=== PATIENT | male | born 1995 | race Caucasian/White ===

== ENCOUNTER 2019-05-21 15:07 | Inpatient (IN) | payer OTHER ==
[~2019-05-21] VITALS: Ht 182.9 cm; Wt 77.2 kg
[2019-05-21] MEDS ORDERED: DERMABOND TOPICAL SKIN ADHESIVE TOP ONE (15:45)
[2019-05-21 15:55] LABS: HEMATOCRIT 51.2 % (42.0-52.0); HEMOGLOBIN 17.3 g/dl (13.5-17.5); MEAN CORPUSCULAR HEMOGLOBIN 30.6 pg (27.0-33.0); MEAN CORPUSCULAR HGB CONC 33.8 g/dl (32.0-36.5); MEAN CORPUSCULAR VOLUME 90.6 fl (80.0-96.0); PLATELET COUNT, AUTOMATED 281 10^3/uL (150-450); RED BLOOD COUNT 5.65 10^6/uL (4.30-6.10); WHITE BLOOD COUNT 9.5 10^3/uL (4.0-10.0)
[2019-05-21 16:24] LABS: AMPHETAMINES LEVEL URINE NEGATIVE (NEGATIVE); BARBITURATES URINE NEGATIVE (NEGATIVE); BENZODIAZEPINES URINE NEGATIVE (NEGATIVE); CANNABINOIDS URINE NEGATIVE (NEGATIVE); COCAINE METABOLITE URINE NEGATIVE (NEGATIVE); METHADONE URINE NEGATIVE (NEGATIVE); OPIATES URINE NEGATIVE (NEGATIVE); PHENCYCLIDINE URINE NEGATIVE (NEGATIVE)
[2019-05-21 16:31] LABS: ACETAMINOPHEN LEVEL < 2.0 UG/ML (10.0-30.0); ALBUMIN 4.6 GM/DL (3.2-5.2); ALT/SGPT 27 U/L (12-78); BILIRUBIN,DIRECT 0.2 MG/DL (0.0-0.2); BILIRUBIN,TOTAL 0.6 MG/DL (0.2-1.0); BLOOD UREA NITROGEN 9 MG/DL (7-18); CALCIUM LEVEL 9.2 MG/DL (8.5-10.1); CARBON DIOXIDE LEVEL 25 MEQ/L (21-32); CHLORIDE LEVEL 105 MEQ/L (98-107); ETHYL ALCOHOL (ETHANOL) 0.143 % (0.000-0.010); GLOMERULAR FILTRATION RATE > 60.0 (>60); GLUCOSE, FASTING 93 MG/DL (70-100); POTASSIUM SERUM 3.7 MEQ/L (3.5-5.1); SALICYLATE LEVEL 1.8 MG/DL (5.0-30.0); SODIUM LEVEL 137 MEQ/L (136-145); THYROID STIMULATING HORMONE 0.589 uIU/ML (0.358-3.740); TOTAL PROTEIN 7.7 GM/DL (6.4-8.2)
[2019-05-21] MEDS ORDERED: IBUPROFEN 600 MG TAB PO ONE (22:30)
[2019-05-22] MEDS ORDERED: MOM 30ML SUSPENSION UDC PO PRN (00:30)
[2019-05-22] MEDS ORDERED: ACETAMINOPHEN TAB 650MG DOSE (2X325MG) PO PRN (00:30)
[2019-05-22] MEDS ORDERED: MAALOX 30 ML SUSP *UDC PO PRN (00:30)
[2019-05-22] MEDS ORDERED: traZODone 50 MG TAB PO PRN (00:30)
[2019-05-22] MEDS ORDERED: LORazepam 2 MG TAB PO PRN (06:15)
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
[2019-05-22] MEDS: FOLIC ACID 1 MG TAB PO SCH (10:01)
[2019-05-22] MEDS: MULTIVITAMINS/MINERALS THERAP 1 TAB PO SCH (10:01)
[2019-05-22] MEDS: THIAMINE 100 MG TAB PO SCH ×2 (10:01→20:17)
[2019-05-22 10:21] VITALS: BP 123/78
[2019-05-22] MEDS ORDERED: PILL CUTTER 1 EACH XX PRN (11:00)
[2019-05-22 16:00] VITALS: BP 135/60
--- NOTE | 2019-05-22 16:00 | HPEPDOC ---
General Date of Admission May 22, 2019 at 00:23 Date of Service: May 22, 2019 Chief Complaint The patient is a 23-year-old male admitted with a reason for visit of Unspecified Depression. Source: Patient Exam Limitations: No limitations Associated Symptoms: Denies Symptoms History of Present Illness Pt is a 23 year old male who was admitted to [facility] after an apparent suicide attempt. Pt reported that he cut his wrists 'just to feel something.' He stated he has been suicidal form the age of 6 or 7. He has attempted to commit suicide by hanging 'somewhere between the age of [age].' Pt stated he hasn't taken anti-depressants in some time now. He reported he was taking Elavil for sleep, not for depression. Home Medications No Active Prescriptions or Reported Meds Allergies Coded Allergies: No Known Allergies (Verified Allergy, Unknown, 05/21/19) Past Medical History Medical History Depression Suicide attempt by hanging Surgical History Rhinoplasty Family History Significant Family History: Cancer (Mother - colon cancer ) Social History * Smoker: current smoker (5 cigarettes per day ) Alcohol: occationally (weekends ) Drugs: denies A-FIB/CHADSVASC A-FIB History Current/History of A-Fib/PAF?: No Current PO Anticoag Therapy: No Review of Systems Constitutional: Denies: Chills, Fever, Night Sweats Eyes: Denies: Pain ENT: Denies: Head Aches Skin: Denies: Rash, Breakdown Pulmonary: Reports: Cough (dry intermittent cough, 2/2 post-nasal drip ); Denies: Dyspnea Cardiovascular: Denies: Chest Pain, Palpitations Gastrointestinal: Denies: Nausea, Vomiting, Abdominal Pain, Diarrhea Genitourinary: Denies: Dysuria, Retention Hematologic: Denies: Bruising, Bleeding Excessively Musculoskeletal: Denies: Neck Pain, Back Pain, Joint Pain, Muscle Pain, Spasms Neurological: Denies: Weakness, Numbness, Change in speech, Confusion Psych: Reports: Depression, Thoughts of Self Harm; Denies: Memory Issues, Thoughts of Harming Other Physical Examination General Exam: Positive: Alert, Cooperative, No Acute Distress Eye Exam: Positive: PERRLA, Conjunctiva & lids normal, EOMI; Negative: Sclera icteric ENT Exam: Positive: Atraumatic, Mucous membr. moist/pink, Pharynx Normal Neck Exam: Positive: Supple; Negative: thyromegaly Chest Exam: Positive: Clear to auscultation, Normal air movement Heart Exam: Positive: Rate Normal, Regular Rhythm, Normal S1, Normal S2; Negative: Murmurs, Rubs Telemetry: Positive: No significant arrhythmia Abdomen Exam: Positive: Normal bowel sounds, Soft; Negative: Tenderness, Hepatospenomegaly Extremity Exam: Positive: Normal pulses; Negative: Clubbing, Cyanosis, Edema Skin Exam: Positive: Nl turgor and temperature, Other skin issue (superficial scar b/l wrists from self-harm ); Negative: Breakdown, Lesion Neuro Exam: Positive: Normal Gait, Normal Speech, Strength at 5/5 X4 ext, C ranial Nerves 3-12 NL Psych Exam: Positive: Mood NL Vital Signs Vital Signs Date Time Temp Pulse Resp B/P (MAP) Pulse Ox O2 Delivery O2 Flow Rate FiO2 05/22/19 10:21 98.5 76 16 123/78 (93) 98 Room Air Assessment/Plan Pt is a 23 year old male who was admitted to [facility] after an apparent suicide attempt. Pt reported that he cut his wrists 'just to feel something.' He stated he has been suicidal form the age of 6 or 7. He has attempted to commit suicide by hanging 'somewhere between the age of [age].' Pt stated he hasn't taken anti-depressants in some time now. He reported he was taking Elavil for sleep, not for depression. Depression, with suicide attempt - management per psychiatry Medicine will sign off at this time. Please re-consult as needed. I, Xavier Frye, have independently examined this patient and performed my own physical exam, as well as reviewed the documentation and edited where necessary. I have discussed in detail with the nurse practitioner the findings and plan of treatment as documented by the nurse practitioner . I will continue to follow the patient during this hospital stay. Plan / VTE VTE Prophylaxis Ordered?: No JUNE RAMIRES PA-C May 22, 2019 16:00 XAVIER FRYE DO May 22, 2019 20:14
[2019-05-22 20:30] VITALS: BP 136/77
[2019-05-22] MEDS ORDERED: AMITRIPTYLINE 10 MG TAB PO SCH (21:00)
[2019-05-22] MEDS ORDERED: AMITRIPTYLINE 25 MG TAB PO SCH (21:00)
[2019-05-23 06:31] VITALS: BP 133/68
[2019-05-23 06:32] VITALS: BP 133/68
[2019-05-23] MEDS: THIAMINE 100 MG TAB PO SCH ×2 (09:11→20:29)
[2019-05-23] MEDS: FOLIC ACID 1 MG TAB PO SCH (09:11)
[2019-05-23] MEDS: MULTIVITAMINS/MINERALS THERAP 1 TAB PO SCH (09:11)
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
[2019-05-23] MEDS: NICOTINE 21MG/24HR 1 EA TRANSDERMAL TD SCH (12:43)
[2019-05-23 16:47] VITALS: BP 128/70
[2019-05-23] MEDS: AMITRIPTYLINE 10 MG TAB PO SCH ×2 (21:00→22:35)
[2019-05-23] MEDS ORDERED: hydrOXYzine 50 MG TAB PO PRN (21:00)
[2019-05-23] MEDS: QUEtiapine FUMARATE 50 MG TAB PO PRN (22:35)
[2019-05-24 06:15] VITALS: BP 131/83
[2019-05-24 08:11] VITALS: BP 131/83
[2019-05-24] MEDS: FOLIC ACID 1 MG TAB PO SCH (09:23)
[2019-05-24] MEDS: MULTIVITAMINS/MINERALS THERAP 1 TAB PO SCH (09:24)
[2019-05-24] MEDS: NICOTINE 21MG/24HR 1 EA TRANSDERMAL TD SCH (09:24)
[2019-05-24] MEDS: THIAMINE 100 MG TAB PO SCH ×2 (09:24→21:25)
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
[2019-05-24] MEDS: hydrOXYzine 25 MG TAB PO PRN (13:34)
[2019-05-24] MEDS: POLYSPORIN TOPICAL OINTMENT 15GM TOP SCH ×2 (15:09→21:25)
[2019-05-24 16:10] VITALS: BP 132/82
[2019-05-24] MEDS: QUEtiapine FUMARATE 50 MG TAB PO PRN (21:25)
[2019-05-24] MEDS: AMITRIPTYLINE 10 MG TAB PO SCH (21:25)
[2019-05-25 06:32] VITALS: BP 143/68
[2019-05-25] MEDS: MULTIVITAMINS/MINERALS THERAP 1 TAB PO SCH (08:43)
[2019-05-25] MEDS: FOLIC ACID 1 MG TAB PO SCH (08:43)
[2019-05-25] MEDS: NICOTINE 21MG/24HR 1 EA TRANSDERMAL TD SCH (08:44)
[2019-05-25] MEDS: POLYSPORIN TOPICAL OINTMENT 15GM TOP SCH ×3 (08:45→20:27)
[2019-05-25 09:42] VITALS: BP 143/68
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
[2019-05-25] MEDS ORDERED: LORazepam 1 MG TAB PO ONE (14:00)
[2019-05-25 16:00] VITALS: BP 134/81
[2019-05-25] MEDS ORDERED: AMITRIPTYLINE 10 MG TAB PO SCH (21:00)
[2019-05-26 06:45] VITALS: BP 140/70
[2019-05-26] MEDS: FOLIC ACID 1 MG TAB PO SCH (08:14)
[2019-05-26] MEDS: MULTIVITAMINS/MINERALS THERAP 1 TAB PO SCH (08:14)
[2019-05-26] MEDS: POLYSPORIN TOPICAL OINTMENT 15GM TOP SCH (08:15)
[2019-05-26] MEDS: NICOTINE 21MG/24HR 1 EA TRANSDERMAL TD SCH (08:15)
[2019-05-26] MEDS ORDERED: QUET5TAB PO (08:31)
[2019-05-26] MEDS ORDERED: NICO21PAT TD (08:31)
[2019-05-26] MEDS ORDERED: AMIT10TA PO (08:31)
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
[2019-05-26] MEDS: hydrOXYzine 25 MG TAB PO PRN (09:52)
== END 2019-05-26 11:20 | disposition home or self-care (01) | DRG 885 ==
LOC: M ED 15:07 → M ED INP 05-22 00:23 → M PSY 05-22 09:09
PROVIDERS: ADMIT Psychiatry & Neurology Addiction Medicine; ATTEND Psychiatry & Neurology Addiction Medicine
DX: F32.2 Major depressive disorder, single episode, severe without psychotic features (principal); F10.129 Alcohol abuse with intoxication, unspecified; Z87.820 Personal history of traumatic brain injury; S61.511A Laceration without foreign body of right wrist, initial encounter; S61.512A Laceration without foreign body of left wrist, initial encounter; X78.9XXA Intentional self-harm by unspecified sharp object, initial encounter; Y92.009 Unspecified place in unspecified non-institutional (private) residence as the place of occurrence of the external cause; F43.10 Post-traumatic stress disorder, unspecified; Z62.811 Personal history of psychological abuse in childhood; Z62.810 Personal history of physical and sexual abuse in childhood; Z63.5 Disruption of family by separation and divorce

== ENCOUNTER 2019-06-28 01:17 | Inpatient (IN) | payer OTHER ==
[~2019-06-28] VITALS: Ht 182.9 cm; Wt 75.3 kg
[~2019-06-28 01:17] MED LIST: AMIT10TA PO; NICO21PAT TD; QUET5TAB PO
[2019-06-28] MEDS ORDERED: CITA20TA6 PO (01:40)
[2019-06-28 01:56] LABS: HEMATOCRIT 47.9 % (42.0-52.0); HEMOGLOBIN 16.1 g/dl (13.5-17.5); MEAN CORPUSCULAR HEMOGLOBIN 30.6 pg (27.0-33.0); MEAN CORPUSCULAR HGB CONC 33.6 g/dl (32.0-36.5); MEAN CORPUSCULAR VOLUME 90.9 fl (80.0-96.0); PLATELET COUNT, AUTOMATED 264 10^3/uL (150-450); RED BLOOD COUNT 5.27 10^6/uL (4.30-6.10); WHITE BLOOD COUNT 11.5 10^3/uL (4.0-10.0)
[2019-06-28 02:20] LABS: AMPHETAMINES LEVEL URINE NEGATIVE (NEGATIVE); BARBITURATES URINE NEGATIVE (NEGATIVE); BENZODIAZEPINES URINE NEGATIVE (NEGATIVE); CANNABINOIDS URINE NEGATIVE (NEGATIVE); COCAINE METABOLITE URINE NEGATIVE (NEGATIVE); METHADONE URINE NEGATIVE (NEGATIVE); OPIATES URINE NEGATIVE (NEGATIVE); PHENCYCLIDINE URINE NEGATIVE (NEGATIVE)
[2019-06-28 02:28] LABS: ACETAMINOPHEN LEVEL < 2.0 UG/ML (10.0-30.0); ALBUMIN 4.2 GM/DL (3.2-5.2); ALT/SGPT 21 U/L (12-78); BILIRUBIN,DIRECT < 0.1 MG/DL (0.0-0.2); BILIRUBIN,TOTAL 0.2 MG/DL (0.2-1.0); BLOOD UREA NITROGEN 5 MG/DL (7-18); CALCIUM LEVEL 8.6 MG/DL (8.5-10.1); CARBON DIOXIDE LEVEL 26 MEQ/L (21-32); CHLORIDE LEVEL 110 MEQ/L (98-107); CREATININE FOR GFR 0.78 MG/DL (0.70-1.30); ETHYL ALCOHOL (ETHANOL) 0.292 % (0.000-0.010); GLOMERULAR FILTRATION RATE > 60.0 (>60); GLUCOSE, FASTING 97 MG/DL (70-100); POTASSIUM SERUM 3.7 MEQ/L (3.5-5.1); SODIUM LEVEL 144 MEQ/L (136-145); TOTAL PROTEIN 7.3 GM/DL (6.4-8.2)
[2019-06-28] MEDS ORDERED: QUET5TAB PO (10:47)
[2019-06-28] MEDS ORDERED: ACETAMINOPHEN TAB 650MG DOSE (2X325MG) PO PRN (11:30)
[2019-06-28] MEDS ORDERED: MOM 30ML SUSPENSION UDC PO PRN (11:30)
[2019-06-28] MEDS ORDERED: MAALOX 30 ML SUSP *UDC PO PRN (11:30)
[2019-06-28] MEDS: CitaloPRAM (CeleXA) 20 MG TAB PO SCH (11:48)
[2019-06-28 11:57] VITALS: BP 143/82
[2019-06-28] MEDS: NICOTINE 21MG/24HR 1 EA TRANSDERMAL TD SCH (16:05)
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
[2019-06-28] MEDS: QUEtiapine FUMARATE 50 MG TAB PO PRN (20:20)
[2019-06-29] MEDS ORDERED: UNRESOLVED CLARIFICATION ENTRY XX SCH (00:01)
[2019-06-29 06:31] VITALS: BP 130/78
[2019-06-29] MEDS: CitaloPRAM (CeleXA) 20 MG TAB PO SCH (08:24)
[2019-06-29] MEDS: NICOTINE 21MG/24HR 1 EA TRANSDERMAL TD SCH (08:24)
[2019-06-29 11:15] VITALS: BP 130/78
[2019-06-29] MEDS ORDERED: LORazepam 2 MG TAB PO PRN (11:15)
[2019-06-29] MEDS: FOLIC ACID 1 MG TAB PO SCH (11:26)
[2019-06-29] MEDS: MULTIVITAMINS/MINERALS THERAP 1 TAB PO SCH (11:27)
[2019-06-29] MEDS: THIAMINE 100 MG TAB PO SCH ×2 (11:27→20:00)
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
[2019-06-29 18:12] VITALS: BP 143/86
[2019-06-29] MEDS: QUEtiapine FUMARATE 50 MG TAB PO PRN (20:00)
[2019-06-30 06:21] VITALS: BP 135/77
[2019-06-30] MEDS: MULTIVITAMINS/MINERALS THERAP 1 TAB PO SCH (08:06)
[2019-06-30] MEDS: FOLIC ACID 1 MG TAB PO SCH (08:06)
[2019-06-30] MEDS: CitaloPRAM (CeleXA) 20 MG TAB PO SCH (08:06)
[2019-06-30] MEDS: THIAMINE 100 MG TAB PO SCH (08:06)
[2019-06-30] MEDS: NICOTINE 21MG/24HR 1 EA TRANSDERMAL TD SCH (08:07)
[2019-06-30] MEDS ORDERED: CITA20TA6 PO (09:03)
[2019-06-30] MEDS ORDERED: QUET5TAB PO (09:03)
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
[2019-06-30 09:35] VITALS: BP 135/77
== END 2019-06-30 13:08 | disposition home or self-care (01) | DRG 885 ==
LOC: M ED 01:17 → M ED INP 11:21 → M PSY 12:10
PROVIDERS: ADMIT Psychiatry & Neurology Psychiatry; ATTEND Psychiatry & Neurology Psychiatry
DX: F32.2 Major depressive disorder, single episode, severe without psychotic features (principal); F10.129 Alcohol abuse with intoxication, unspecified; F17.210 Nicotine dependence, cigarettes, uncomplicated; F43.10 Post-traumatic stress disorder, unspecified; Z62.810 Personal history of physical and sexual abuse in childhood; Z62.811 Personal history of psychological abuse in childhood; Z81.1 Family history of alcohol abuse and dependence; Z81.8 Family history of other mental and behavioral disorders; Z79.899 Other long term (current) drug therapy; Z63.5 Disruption of family by separation and divorce

== ENCOUNTER 2019-07-22 01:48 | Observation (INO) | payer OTHER ==
[~2019-07-22] VITALS: Ht 182.9 cm; Wt 85.0 kg
[~2019-07-22 01:48] MED LIST changes: +CITA20TA6 PO
[2019-07-22] MEDS ORDERED: ESCI10TA2 PO (02:00)
[2019-07-22] MEDS ORDERED: TRAZ-252 PO (02:00)
[2019-07-22 02:14] LABS: HEMATOCRIT 46.9 % (42.0-52.0); HEMOGLOBIN 15.9 g/dl (13.5-17.5); MEAN CORPUSCULAR HEMOGLOBIN 31.2 pg (27.0-33.0); MEAN CORPUSCULAR HGB CONC 33.9 g/dl (32.0-36.5); MEAN CORPUSCULAR VOLUME 92.1 fl (80.0-96.0); PLATELET COUNT, AUTOMATED 249 10^3/uL (150-450); RED BLOOD COUNT 5.09 10^6/uL (4.30-6.10); WHITE BLOOD COUNT 9.8 10^3/uL (4.0-10.0)
[2019-07-22 02:47] LABS: ACETAMINOPHEN LEVEL < 2.0 UG/ML (10.0-30.0); ALBUMIN 4.3 GM/DL (3.2-5.2); ALT/SGPT 20 U/L (12-78); BILIRUBIN,DIRECT < 0.1 MG/DL (0.0-0.2); BILIRUBIN,TOTAL 0.3 MG/DL (0.2-1.0); BLOOD UREA NITROGEN 11 MG/DL (7-18); CALCIUM LEVEL 8.3 MG/DL (8.5-10.1); CARBON DIOXIDE LEVEL 24 MEQ/L (21-32); CHLORIDE LEVEL 109 MEQ/L (98-107); CREATININE FOR GFR 0.71 MG/DL (0.70-1.30); ETHYL ALCOHOL (ETHANOL) 0.264 % (0.000-0.010); GLOMERULAR FILTRATION RATE > 60.0 (>60); GLUCOSE, FASTING 107 MG/DL (70-100); POTASSIUM SERUM 3.9 MEQ/L (3.5-5.1); SALICYLATE LEVEL 2.9 MG/DL (5.0-30.0); SODIUM LEVEL 142 MEQ/L (136-145); THYROID STIMULATING HORMONE 0.896 uIU/ML (0.358-3.740); TOTAL PROTEIN 7.3 GM/DL (6.4-8.2)
[2019-07-22 04:13] LABS: AMPHETAMINES LEVEL URINE NEGATIVE (NEGATIVE); BARBITURATES URINE NEGATIVE (NEGATIVE); BENZODIAZEPINES URINE NEGATIVE (NEGATIVE); CANNABINOIDS URINE NEGATIVE (NEGATIVE); COCAINE METABOLITE URINE NEGATIVE (NEGATIVE); METHADONE URINE NEGATIVE (NEGATIVE); OPIATES URINE NEGATIVE (NEGATIVE); PHENCYCLIDINE URINE NEGATIVE (NEGATIVE)
[2019-07-22] MEDS ORDERED: SERO50TA PO (07:52)
[2019-07-22] MEDS ORDERED: ACETAMINOPHEN TAB 650MG DOSE (2X325MG) PO PRN (08:30)
--- NOTE | 2019-07-22 08:48 | HPEPDOC ---
General Date of Admission 07/22/19 Date of Service: Jul 22, 2019 Chief Complaint The patient is a 23-year-old male admitted with a reason for visit of Overdose. Source: Old records Exam Limitations: Intoxication Timing/Duration: 24 hours Severity: Moderate Associated Symptoms: Unobtainable History of Present Illness Patient is 23 years old male with past medical history of suicidal ideation, alcohol abuse, tobacco abuse presented to [facility] emergency room on 07/22/19 after heavy drinking and overdose with Lexapro, Seroquel and trazodone. Of note patient had a few suicidal attempts in the past most recent was on on 06/28/2019 and in May 2019. In emergency room patient was somnolent, did not follow commands, but responsive on sternal rub. EKG showed sinus rhythm with QTC 432 ms, U tox showed alcohol level 0.2. When I saw the patient he was somnolent, did not answer my questions. Home Medications Scheduled Escitalopram Oxalate (Escitalopram Oxalate) 10 Mg Tablet, 5 MG PO DAILY, (Reported) Quetiapine Fumarate (Seroquel) 50 Mg Tablet, 50 MG PO QHS, (Reported) Trazodone HCl (Trazodone HCl) 50 Mg Tablet, 100 MG PO QHS, (Reported) Allergies Coded Allergies: No Known Allergies (Verified Allergy, Unknown, 07/22/19) Past Medical History Medical History 1. Depression 2. History of suicidal ideation 3. Tobacco abuse 4. Alcohol abuse Surgical History 1. Nasal surgery 3 Family History Father: Unknown history, alive Mother: Colon cancer, alive Maternal uncle: Testicular cancer Social History * Smoker: current smoker Alcohol: occationally Drugs: denies A-FIB/CHADSVASC A-FIB History Current/History of A-Fib/PAF?: No Current PO Anticoag Therapy: No Review of Systems Constitutional: Reports: Other (unobtainable due to somnolence) Physical Examination General Exam: Positive: Other (somnolent) Eye Exam: Positive: Other Eye Symptoms (bilateral mydriasis); Negative: PERRLA ENT Exam: Positive: Atraumatic Neck Exam: Positive: Supple; Negative: JVD Chest Exam: Positive: Clear to auscultation Heart Exam: Positive: Rate Normal Telemetry: Positive: No significant arrhythmia Abdomen Exam: Positive: Normal bowel sounds Extremity Exam: Negative: Clubbing, Cyanosis Skin Exam: Positive: Nl turgor and temperature Neuro Exam: Positive: Normal Tone, Reflexes 2+, Other (unable to complete neurological exam due to somnolence) Psych Exam: Positive: Other (somnolent) Vital Signs Vital Signs Date Time Temp Pulse Resp B/P (MAP) Pulse Ox O2 Delivery O2 Flow Rate FiO2 07/22/19 07:15 97.5 72 16 98 07/22/19 07:00 103/52 (69) 07/22/19 06:30 Nasal Cannula 2.0 Laboratory Data Labs 24H Laboratory Tests 2 07/22/19 02:05: Nucleated Red Blood Cells % (auto) 0.0, Anion Gap 9, Glomerular Filtration Rate > 60.0, Calcium Level 8.3L, Total Bilirubin 0.3, Direct Bilirubin < 0.1, Aspartate Amino Transf (AST/SGOT) 12, Alanine Aminotransferase (ALT/SGPT) 20, Alkaline Phosphatase 77, Total Protein 7.3, Albumin 4.3, Albumin/Globulin Ratio 1.43, Thyroid Stimulating Hormone (TSH) 0.896, Salicylates Level 2.9L, Aceta minophen Level < 2.0L, Ethyl Alcohol Level 0.264H 07/22/19 03:41: Urine Opiates Screen NEGATIVE, Urine Methadone Screen NEGATIVE, Urine Barbiturates Screen NEGATIVE, Urine Phencyclidine Screen NEGATIVE, Urine Amphetamines Screen NEGATIVE, Urine Benzodiazepines Screen NEGATIVE, Urine Cocaine Metabolite Screen NEGATIVE, Urine Cannabinoids Screen NEGATIVE CBC/BMP Laboratory Tests 07/22/19 02:05 Assessment/Plan Patient is 23 years old male with past medical history of suicidal ideation, alcohol abuse, tobacco abuse presented to [facility] emergency room on 07/22/19 after heavy drinking and overdose with Lexapro, Seroquel and trazodone. Of note patient had a few suicidal attempts in the past most recent was on on 06/28/2019 and in May 2019. In emergency room patient was somnolent, did not follow commands, but responsive on sternal rub. EKG showed sinus rhythm with QTC 432 ms, U tox showed alcohol level 0.2. When I saw the patient he was somnolent, did not answer my questions Problems (1) Alcohol abuse with intoxication Status: Acute Problem Text: SIWA protocol (2) Suicide attempt by drug overdose Status: Acute Problem Text: Patient did have multiple episodes of suicidal attempts in the past There is a possibility that patient tried to kill himself When patient stabilized I will ask psych team to evaluate the patient Patient is normotensive w/o tachycardia, no indication for bicarbonate infusion Monitor EKG for QTc prolongation Telemetry IV fluid Sitter for 24 hours Plan / VTE VTE Prophylaxis Ordered?: No VTE Exclusion Pharmacological: At Low Risk for VTE BRANDEE FRYE DO Jul 22, 2019 08:48
[2019-07-22] MEDS ORDERED: LORazepam 2 MG TAB PO PRN (09:00)
[2019-07-22 09:30] VITALS: BP 139/78
[2019-07-22] MEDS: NS 1,000 ML IV SCH ×2 (12:37→22:00)
[2019-07-22 14:00] VITALS: BP 124/62
[2019-07-22] MEDS: MULTIVITAMINS/MINERALS THERAP 1 TAB PO SCH (14:35)
[2019-07-22] MEDS: FOLIC ACID 1 MG TAB PO SCH (14:36)
[2019-07-22] MEDS: THIAMINE 100 MG TAB PO SCH ×2 (14:36→22:00)
[2019-07-22 20:50] VITALS: BP 108/58
[2019-07-22 22:00] VITALS: BP 138/60
[2019-07-22 22:01] VITALS: BP_SYST 138; BP_SYST 151; BP_DIAS 60; BP_DIAS 81
--- NOTE | 2019-07-23 01:02 | ECGEPIP ---
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
--- NOTE | 2019-07-23 01:04 | ECGEPIP ---
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
--- NOTE | 2019-07-23 01:05 | ECGEPIP ---
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
--- NOTE | 2019-07-23 03:19 | ECGEPIP ---
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
[2019-07-23 06:00] VITALS: BP_SYST 112; BP_SYST 119; BP_DIAS 63; BP_DIAS 69
[2019-07-23 06:11] LABS: HEMATOCRIT 45.3 % (42.0-52.0); HEMOGLOBIN 15.1 g/dl (13.5-17.5); MEAN CORPUSCULAR HEMOGLOBIN 31.5 pg (27.0-33.0); MEAN CORPUSCULAR HGB CONC 33.3 g/dl (32.0-36.5); MEAN CORPUSCULAR VOLUME 94.6 fl (80.0-96.0); PLATELET COUNT, AUTOMATED 237 10^3/uL (150-450); RED BLOOD COUNT 4.79 10^6/uL (4.30-6.10); WHITE BLOOD COUNT 9.4 10^3/uL (4.0-10.0)
[2019-07-23 06:38] LABS: ALBUMIN 3.7 GM/DL (3.2-5.2); ALT/SGPT 17 U/L (12-78); BILIRUBIN,TOTAL 0.7 MG/DL (0.2-1.0); BLOOD UREA NITROGEN 11 MG/DL (7-18); CALCIUM LEVEL 8.8 MG/DL (8.5-10.1); CARBON DIOXIDE LEVEL 28 MEQ/L (21-32); CHLORIDE LEVEL 108 MEQ/L (98-107); CREATININE FOR GFR 0.96 MG/DL (0.70-1.30); GLOMERULAR FILTRATION RATE > 60.0 (>60); GLUCOSE, FASTING 77 MG/DL (70-100); MAGNESIUM LEVEL 1.7 MG/DL (1.8-2.4); POTASSIUM SERUM 4.3 MEQ/L (3.5-5.1); SODIUM LEVEL 143 MEQ/L (136-145); TOTAL PROTEIN 6.3 GM/DL (6.4-8.2)
[2019-07-23] MEDS: NS 1,000 ML IV SCH ×2 (07:57→18:11)
[2019-07-23] MEDS: THIAMINE 100 MG TAB PO SCH ×2 (09:41→20:45)
[2019-07-23] MEDS: MULTIVITAMINS/MINERALS THERAP 1 TAB PO SCH (09:41)
[2019-07-23] MEDS: FOLIC ACID 1 MG TAB PO SCH (09:41)
[2019-07-23 14:00] VITALS: BP 118/65
--- NOTE | 2019-07-23 16:07 | IPNPDOC ---
Text Note Date of Service The patient was seen on 07/23/19. NOTE Subjective: No any acute events overnight. Today patient confirmed that it was suicidal attempt. Patient stated that he is not suicidal anymore. He denied fever, chills, nausea, vomiting, diarrhea or dysuria VITAL SIGNS: Please see below. GENERAL: awake, alert, NAD HEENT: NCAT, anicteric sclera, NATALIE NECK: supple, no JVD CARDIOVASCULAR EXAMINATION: NS1S2, regular rate/rhythm RESPIRATORY EXAMINATION: CTA b/l, no wheezes/rales/rhonchi ABDOMINAL EXAMINATION: positive bowel sounds x 4, NT EXTREMITIES: no cyanosis, clubbing, edema SKIN: warm, no rashes. NEUROLOGICAL EXAMINATION: AAO x 3, no motor/sensory deficits Assessment/Plan Patient is 23 years old male with past medical history of suicidal ideation, alcohol abuse, tobacco abuse presented to [facility] emergency room on 07/22/19 after heavy drinking and overdose with Lexapro, Seroquel and trazodone. Of note patient had a few suicidal attempts in the past most recent was on on 06/28/2019 and in May 2019. In emergency room patient was somnolent, did not follow commands, but responsive on sternal rub. EKG showed sinus rhythm with QTC 432 ms, U tox showed alcohol level 0.2. When I saw the patient he was somnolent, did not answer my questions Problems (1) Alcohol abuse with intoxication Continue with SIFL protocol (2) Suicide attempt by drug overdose Patient did have multiple episodes of suicidal attempts in the past Today patient confirmed that it was suicidal attempt Psych evaluation Sitter for 24 hours VS,Candi, I+O VS, Candi, I+O Laboratory Tests 07/23/19 05:21 Vital Signs Date Time Temp Pulse Resp B/P (MAP) Pulse Ox O2 Delivery O2 Flow Rate FiO2 07/23/19 14:00 97.3 75 19 118/65 (82) 96 Room Air 07/22/19 14:00 2.0 I&O- Last 24 Hours up to 6 AM 07/23/19 06:00 Intake Total 2305 ml Output Total 800 ml Balance 1505 ml BRANDEE FRYE DO Jul 23, 2019 16:07
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
--- NOTE | 2019-07-23 19:58 | ECGEPIP ---
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
[2019-07-23] MEDS ORDERED: MAG SULF 1GM/100ML (MAG RUN) 1 GM in IV 1 EA IV ONE (20:45)
[2019-07-23 22:00] VITALS: BP 120/66
[2019-07-24] MEDS: NS 1,000 ML IV SCH ×2 (04:03→10:45)
[2019-07-24 06:00] VITALS: BP_SYST 120; BP_SYST 121; BP_DIAS 68; BP_DIAS 69
[2019-07-24] MEDS: THIAMINE 100 MG TAB PO SCH (09:06)
[2019-07-24] MEDS: FOLIC ACID 1 MG TAB PO SCH (09:06)
[2019-07-24] MEDS: MULTIVITAMINS/MINERALS THERAP 1 TAB PO SCH (09:06)
[2019-07-24 12:46] VITALS: BP 129/73
--- NOTE | 2019-07-24 16:41 | DS.PDOC ---
Discharge Summary General Date of Admission Jul 22, 2019 at 01:49 Date of Discharge 07/24/19 Discharge Summary PROCEDURES PERFORMED DURING STAY: [None]. ADMITTING DIAGNOSES: Alcohol abuse with intoxication Suicide attempt by drug overdose DISCHARGE DIAGNOSES: Alcohol abuse with intoxication Suicide attempt by drug overdose COMPLICATIONS/CHIEF COMPLAINT: Alcohol Intoxication. HISTORY OF PRESENT ILLNESS: Patient is 23 years old male with past medical history of suicidal ideation, alcohol abuse, tobacco abuse presented to [facility] emergency room on 07/22/19 after heavy drinking and overdose with Lexapro, Seroquel and trazodone. Of note patient had a few suicidal attempts in the past most recent was on on 06/28/2019 and in May 2019. In emergency room patient was somnolent, did not follow commands, but responsive on sternal rub. EKG showed sinus rhythm with QTC 432 ms, U tox showed alcohol level 0.2. When I saw the patient he was somnolent, did not answer my questions Problems (1) Alcohol abuse with intoxication Continue with [facility] protocol (2) Suicide attempt by drug overdose Patient did have multiple episodes of suicidal attempts in the past Today patient confirmed that it was suicidal attempt Psych evaluation Sitter for 24 hours HOSPITAL COURSE: Patient was transferred mental health unit DISCHARGE MEDICATIONS: Please see below. ALLERGIES: Please see below. PHYSICAL EXAMINATION ON DISCHARGE: VITAL SIGNS: Please see below. GENERAL: awake, alert, NAD HEENT: NCAT, anicteric sclera, NATALIE NECK: supple, no JVD CARDIOVASCULAR EXAMINATION: NS1S2, regular rate/rhythm RESPIRATORY EXAMINATION: CTA b/l, no wheezes/rales/rhonchi ABDOMINAL EXAMINATION: positive bowel sounds x 4, NT EXTREMITIES: no cyanosis, clubbing, edema SKIN: warm, no rashes. NEUROLOGICAL EXAMINATION: AAO x 3, no motor/sensory deficits LABORATORY DATA: Please see below. PROGNOSIS: good ACTIVITY: [As tolerated]. DIET: regular DISPOSITION: [address] [facility]. ITEMS TO FOLLOWUP ON ON OUTPATIENT: Psychiatrist. DISCHARGE CONDITION: [Stable]. TIME SPENT ON DISCHARGE: Greater than 12 minutes. Vital Signs/I&Os Vital Signs Date Time Temp Pulse Resp B/P (MAP) Pulse Ox O2 Delivery O2 Flow Rate FiO2 07/24/19 12:46 75 129/73 07/24/19 06:00 98.2 14 97 Room Air 07/22/19 14:00 2.0 I&O- Last 24 Hours up to 6 AM 07/24/19 06:00 Intake Total 4840 ml Output Total 201 ml Balance 4639 ml Discharge Medications Scheduled Escitalopram Oxalate (Escitalopram Oxalate) 10 Mg Tablet, 5 MG PO DAILY, (Reported) Quetiapine Fumarate (Seroquel) 50 Mg Tablet, 50 MG PO QHS, (Reported) Trazodone HCl (Trazodone HCl) 50 Mg Tablet, 100 MG PO QHS, (Reported) Allergies Coded Allergies: No Known Allergies (Verified Allergy, Unknown, 07/22/19) BRANDEE FRYE DO Jul 24, 2019 16:41
== END 2019-07-24 15:07 ==
LOC: M ED 01:48 → M MSPAV 01:49 → ENRESERV 08:38
PROVIDERS: ADMIT Internal Medicine; ATTEND Internal Medicine
DX: F10.129 Alcohol abuse with intoxication, unspecified (principal); T14.91XA Suicide attempt, initial encounter; T43.202A Poisoning by unspecified antidepressants, intentional self-harm, initial encounter; T43.592A Poisoning by other antipsychotics and neuroleptics, intentional self-harm, initial encounter; T43.212A Poisoning by selective serotonin and norepinephrine reuptake inhibitors, intentional self-harm, initial encounter; F41.9 Anxiety disorder, unspecified; F32.9 Major depressive disorder, single episode, unspecified; Z87.820 Personal history of traumatic brain injury; Z79.899 Other long term (current) drug therapy; Y92.89 Other specified places as the place of occurrence of the external cause
CPT/HCPCS: 36415; 80048; 80053; 80076; 80307; 83735; 84443; 85027; 93005; 96360; 99285; G0480; J3475

== ENCOUNTER 2019-07-23 19:05 | Inpatient (IN) | payer OTHER ==
[~2019-07-23 19:05] MED LIST changes: +ESCI10TA2 PO; +SERO50TA PO; +TRAZ-252 PO
[2019-07-23] MEDS ORDERED: IBUPROFEN 400 MG TAB PO PRN (19:45)
[2019-07-23] MEDS ORDERED: MAALOX 30 ML SUSP *UDC PO PRN (19:45)
[2019-07-23] MEDS ORDERED: MOM 30ML SUSPENSION UDC PO PRN (19:45)
[2019-07-23] MEDS ORDERED: traZODone 50 MG TAB PO PRN (19:45)
[2019-07-23] MEDS ORDERED: LORazepam 2 MG TAB PO PRN (19:45)
[2019-07-23] MEDS ORDERED: OLANZapine 5 MG TAB PO SCH (19:45)
[2019-07-23] MEDS ORDERED: NICOTINE 21MG/24HR 1 EA TRANSDERMAL TD PRN (19:45)
[2019-07-23] MEDS ORDERED: THIAMINE 100 MG TAB PO SCH (21:00)
[2019-07-24] MEDS ORDERED: FOLIC ACID 1 MG TAB PO SCH (09:00)
[2019-07-24] MEDS: NICOTINE 21MG/24HR 1 EA TRANSDERMAL TD SCH (09:00)
[2019-07-24] MEDS ORDERED: MULTIVITAMINS/MINERALS THERAP 1 TAB PO SCH (09:00)
[2019-07-24] MEDS ORDERED: MAALOX 30 ML SUSP *UDC PO PRN (15:15)
[2019-07-24] MEDS ORDERED: MOM 30ML SUSPENSION UDC PO PRN (15:15)
[2019-07-24] MEDS ORDERED: traZODone 50 MG TAB PO PRN (15:15)
[2019-07-24] MEDS: ACETAMINOPHEN TAB 650MG DOSE (2X325MG) PO PRN (16:39)
[2019-07-24] MEDS ORDERED: QUEtiapine FUMARATE 50 MG TAB PO PRN (20:45)
[2019-07-25 06:36] VITALS: BP 118/56
[2019-07-25] MEDS: NICOTINE 21MG/24HR 1 EA TRANSDERMAL TD SCH (08:05)
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
[2019-07-25] MEDS ORDERED: hydrOXYzine 50 MG TAB PO PRN (11:15)
[2019-07-25] MEDS ORDERED: buPROPion **XL** TABLET 150MG (WELLBUTRIN XL) PO ONE (11:15)
--- NOTE | 2019-07-25 15:24 | HPEPDOC ---
General Date of Admission Jul 24, 2019 at 15:12 Date of Service: Jul 25, 2019 Chief Complaint The patient is a 23-year-old male admitted with a reason for visit of Unspecified Depressive Disorder. Source: Patient Exam Limitations: No limitations, Clinical conditions Timing/Duration: Day(s) Severity: Mild History of Present Illness Patient is 23 years old male with past medical history of suicidal ideation, alcohol abuse, tobacco abuse presented to [facility] emergency room on 07/22/19 after heavy drinking and overdose with Lexapro, Seroquel and trazodone. Of note patient had a few suicidal attempts in the past most recent was on on 06/28/2019 and in May 2019. After initial stabilization patient was transferred to mental health unit. During my interview patient complains of left-sided chest discomfort and shortness of breath on exertion. Home Medications Scheduled Escitalopram Oxalate (Escitalopram Oxalate) 10 Mg Tablet, 5 MG PO DAILY, (Reported) Quetiapine Fumarate (Seroquel) 50 Mg Tablet, 50 MG PO QHS, (Reported) Trazodone HCl (Trazodone HCl) 50 Mg Tablet, 100 MG PO QHS, (Reported) Allergies Coded Allergies: No Known Allergies (Verified Allergy, Unknown, 07/22/19) Past Medical History Medical History Depression, anxiety Family History I reviewed family history and found not pertinent Social History * Smoker: current smoker Alcohol: occationally Drugs: denies A-FIB/CHADSVASC A-FIB History Current/History of A-Fib/PAF?: No Current PO Anticoag Therapy: No Review of Systems Constitutional: Denies: Chills, Fever ENT: Denies: Head Aches Skin: Denies: Rash, Lesions Pulmonary: Reports: Dyspnea; Denies: Pleuritic Chest Pain Cardiovascular: Reports: Chest Pain Gastrointestinal: Denies: Nausea, Vomiting Genitourinary: Denies: Dysuria, Frequency Hematologic: Denies: Bruising, Bleeding Excessively Endocrine: Denies: Polydipsia Musculoskeletal: Denies: Neck Pain Neurological: Denies: Weakness Psych: Reports: Depression; Denies: Mood Normal Physical Examination General Exam: Positive: Alert, Cooperative Eye Exam: Positive: PERRLA ENT Exam: Positive: Atraumatic Neck Exam: Positive: Supple; Negative: JVD Chest Exam: Positive: Clear to auscultation Heart Exam: Positive: Rate Normal Telemetry: Positive: No significant arrhythmia Abdomen Exam: Positive: Normal bowel sounds Extremity Exam: Positive: Clubbing; Negative: Cyanosis Skin Exam: Positive: Nl turgor and temperature Neuro Exam: Positive: Normal Gait, Strength at 5/5 X4 ext, Cranial Nerves 3-12 NL Psych Exam: Positive: Mental status NL Vital Signs Vital Signs Date Time Temp Pulse Resp B/P (MAP) Pulse Ox O2 Delivery O2 Flow Rate FiO2 07/25/19 06:36 98.8 63 12 118/56 (76) 99 Room Air Assessment/Plan Patient is 23 years old male with past medical history of suicidal ideation, alcohol abuse, tobacco abuse presented to [facility] emergency room on 07/22/19 after heavy drinking and overdose with Lexapro, Seroquel and trazodone. Of note patient had a few suicidal attempts in the past most recent was on on 06/28/2019 and in May 2019. After initial stabilization patient was transferred to mental health unit. During my interview patient complains of left-sided chest discomfort and shortness of breath on exertion. Problems (1) Suicide attempt by drug overdose Status: Acute Problem Text: therapy per psych team (2) Chest pain Status: Acute Problem Text: Unclear etiology We will check troponin and EKG Please contact us if the test abnormal Plan / VTE VTE Prophylaxis Ordered?: No VTE Exclusion Mechanical Proph: Low Risk for VTE BRANDEE FRYE DO Jul 25, 2019 15:24
[2019-07-25 16:00] VITALS: BP 135/75
[2019-07-26 06:44] VITALS: BP 130/62
[2019-07-26] MEDS: buPROPion **XL** TABLET 150MG (WELLBUTRIN XL) PO SCH (08:09)
[2019-07-26] MEDS: NICOTINE 21MG/24HR 1 EA TRANSDERMAL TD SCH (08:10)
--- NOTE | 2019-07-26 13:10 | ECGEPIP ---
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
[2019-07-26 16:23] VITALS: BP 115/62
--- NOTE | 2019-07-26 19:02 | MHIPNPDOC ---
[facility] Progress Note Progress Note DATE OF SERVICE: 07/26/19 HISTORY: According to Dr. Guerrero's notes: "The patient, a 20-year-old man who I had seen up on the medical floor after an overdose, is met with and follow u osmin the inpatient floor. He reports that he did have quite a bit of trouble with depression, loneliness and increasing depression symptoms such as fatigue and insomnia. 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 He reports that he has been trying to stop drinking, but finds it difficult in these moments of loneliness to refuse to drink. He reports that he is interested in treatment and staff had report since he has arrived, he is much more motivated to engage in proper treatment." VITAL SIGNS: See below. NEW TEST RESULTS: See below CURRENT MEDICATIONS: See below. MENTAL STATUS EXAMINATION: Patient is a 23 year old male, who is alert, dressed in hospital clothes, clean, cooperative. Speech: Is spontaneous ad fluent, normal r/t/v. Language skills are intact. Thought processes including: linear and coherent. Thought content: Denies SI/Hi, denies thought delusions. Abstract reasoning, and computation: Intact Description of associations: Intact. Description of abnormal or psychotic thoughts: Not delusional, not responding to internal stimuli, denies SI/HI. Denies TAV hallucinations Judgment: limited Insight: fair Orientation: x 3. Recent and remote memory: intact. Attention span and concentration: good. Language: adequate Fund of knowledge: average Mood: "Good". Affect: congruent with mood DIAGNOSES: Unspecified depressive disorder. MDD versus abscess versus adjustment. Alcohol use disorder, severe. ASSESSMENT: His mood and affect are better compared to his previous hospitalization. He smiles at times, he needs to quit drinking, he would benefit of a halfway treatment program if the [employer] would agree with it. Reports problems sleeping. I reviewed his most recent labs and his LFT's are still normal. Will order Seroquel 50 mgs PO QHS PRN for sleep. MANAGEMENT PLAN: Continue as per Dr. Guerrero, will start Seroquel 50 mgs PO QHS PRN for sleep and will discontiue Hydroxyzine. TIME SPENT: 20 minutes. Vital Signs Vital Signs Date Time Temp Pulse Resp B/P (MAP) Pulse Ox O2 Delivery O2 Flow Rate FiO2 07/26/19 16:23 99.9 77 16 115/62 (79) 07/26/19 06:44 96 Room Air Laboratory Data 24H Labs Laboratory Tests 2 07/25/19 17:28: Troponin I < 0.02 Current Medications Current Medications Medications (Trade) Dose Ordered Sig/Joy Route PRN Reason Start Time Stop Time Status Last Admin Dose Admin Acetaminophen (Tylenol Tab) 650 mg Q6HP PRN PO HEADACHE or DISCOMFORT 07/24/19 15:15 07/24/19 16:39 Al Hydrox/Mg Hydrox/Simethicone (Mylanta) 30 ml Q4HP PRN PO HEARTBURN/INDIGESTION 07/23/19 19:45 UNV Al Hydrox/Mg Hydrox/Simethicone (Mylanta) 30 ml Q4HP PRN PO HEARTBURN/INDIGESTION 07/24/19 15:15 07/25/19 13:30 Bupropion HCl (Wellbutrin Xl) 150 mg DAILY PO 07/26/19 09:00 07/26/19 08:09 Folic Acid (Folic Acid) 1 mg DAILY PO 07/24/19 09:00 UNV Hydroxyzine HCl (Atarax) 50 mg QHSP PRN PO sleep 07/25/19 11:15 07/25/19 20:33 Ibuprofen (Advil) 400 mg Q6HP PRN PO PAIN 07/23/19 19:45 UNV Lorazepam (Ativan) 2 mg ASDIRECTED PRN PO SEE PROTOCOL 07/23/19 19:45 UNV Magnesium Hydroxide (Milk Of Magnesia) 30 ml DAILYPRN PRN PO CONSTIPATION 07/23/19 19:45 UNV Magnesium Hydroxide (Milk Of Magnesia) 30 ml DAILYPRN PRN PO CONSTIPATION 07/24/19 15:15 Multivitamins (Theragram-M) 1 tab DAILY PO 07/24/19 09:00 UNV Nicotine (Nicoderm Cq 21mg) 1 patch DAILY TD 07/24/19 09:00 07/26/19 08:10 Nicotine (Nicoderm Cq 21mg) 1 patch DAILY PRN TD Nicotine withdrawl 07/23/19 19:45 UNV Olanzapine (ZyPREXA) 5 mg Q4HP PO 07/23/19 19:45 UNV Quetiapine Fumarate (SEROquel) 50 mg QHSP PRN PO INSOMNIA 07/24/19 20:45 07/25/19 11:11 DC 07/24/19 20:48 Thiamine HCl (Thiamine HCl) 100 mg BID PO 07/23/19 21:00 07/26/19 20:59 UNV Trazodone HCl (Desyrel) 50 mg QHSP PRN PO INSOMNIA 07/24/19 15:15 07/24/19 20:35 DC Trazodone HCl (Desyrel) 100 mg QHSP PRN PO INSOMNIA 07/23/19 19:45 UNV Allergies Coded Allergies: No Known Allergies (Verified Allergy, Unknown, 07/22/19) DOMINGO MULLIGAN MD Jul 26, 2019 17:28
[2019-07-26] MEDS: QUEtiapine FUMARATE 50 MG TAB PO PRN (22:33)
[2019-07-27 06:39] VITALS: BP 119/56
[2019-07-27] MEDS: buPROPion **XL** TABLET 150MG (WELLBUTRIN XL) PO SCH (08:09)
[2019-07-27] MEDS: NICOTINE 21MG/24HR 1 EA TRANSDERMAL TD SCH (08:10)
[2019-07-27] MEDS: ACETAMINOPHEN TAB 650MG DOSE (2X325MG) PO PRN (09:39)
[2019-07-27 16:21] VITALS: BP 116/56
[2019-07-27] MEDS: QUEtiapine FUMARATE 50 MG TAB PO PRN (21:41)
--- NOTE | 2019-07-27 21:57 | MHIPNPDOC ---
[facility] Progress Note Progress Note DATE OF SERVICE: 07/27/19 HISTORY: According to Dr. Guerrero's notes: "The patient, a 20-year-old man who I had seen up on the medical floor after an overdose, is met with and follow u osmin the inpatient floor. He reports that he did have quite a bit of trouble with depression, loneliness and increasing depression symptoms such as fatigue and insomnia. 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 He reports that he has been trying to stop drinking, but finds it difficult in these moments of loneliness to refuse to drink. He reports that he is interested in treatment and staff had report since he has arrived, he is much more motivated to engage in proper treatment." VITAL SIGNS: See below. NEW TEST RESULTS: See below CURRENT MEDICATIONS: See below. MENTAL STATUS EXAMINATION: Patient is a 23 year old male, who is alert, dressed in hospital clothes, clean, cooperative. Speech: Is spontaneous ad fluent, normal r/t/v. Language skills are intact. Thought processes including: linear and coherent. Thought content: Denies SI/Hi, denies thought delusions. Abstract reasoning, and computation: Intact Description of associations: Intact. Description of abnormal or psychotic thoughts: Not delusional, not responding to internal stimuli, denies SI/HI. Denies TAV hallucinations Judgment: improving Insight: improving Orientation: x 3. Recent and remote memory: intact. Attention span and concentration: good. Language: adequate Fund of knowledge: average Mood: "fine". Affect: congruent with mood DIAGNOSES: Unspecified depressive disorder. MDD versus abscess versus adjustment. Alcohol use disorder, severe. ASSESSMENT: His mood is fine but he is tired because his roommate moved to much during the night. Staff nurse says that they're going to move his roommate to another room to solve this problem. Patient's mood and affect are bright this time compared to last month where he was admitted to. He is insightful regarding his alcohol abuse and his constant problem with his girlfriend. MANAGEMENT PLAN: Continue as per Dr. Guerrero, will continue with Seroquel 50 mg by mouth daily at bedtime TIME SPENT: 20 minutes. Vital Signs Vital Signs Date Time Temp Pulse Resp B/P (MAP) Pulse Ox O2 Delivery O2 Flow Rate FiO2 07/27/19 06:39 98.0 75 16 119/56 (77) 98 Room Air Current Medications Current Medications Medications (Trade) Dose Ordered Sig/Joy Route PRN Reason Start Time Stop Time Status Last Admin Dose Admin Acetaminophen (Tylenol Tab) 650 mg Q6HP PRN PO HEADACHE or DISCOMFORT 07/24/19 15:15 07/27/19 09:39 Al Hydrox/Mg Hydrox/Simethicone (Mylanta) 30 ml Q4HP PRN PO HEARTBURN/INDIGESTION 07/23/19 19:45 UNV Al Hydrox/Mg Hydrox/Simethicone (Mylanta) 30 ml Q4HP PRN PO HEARTBURN/INDIGESTION 07/24/19 15:15 07/25/19 13:30 Bupropion HCl (Wellbutrin Xl) 150 mg DAILY PO 07/26/19 09:00 07/27/19 08:09 Folic Acid (Folic Acid) 1 mg DAILY PO 07/24/19 09:00 UNV Hydroxyzine HCl (Atarax) 50 mg QHSP PRN PO sleep 07/25/19 11:15 07/26/19 17:33 DC 07/25/19 20:33 Ibuprofen (Advil) 400 mg Q6HP PRN PO PAIN 07/23/19 19:45 UNV Lorazepam (Ativan) 2 mg ASDIRECTED PRN PO SEE PROTOCOL 07/23/19 19:45 UNV Magnesium Hydroxide (Milk Of Magnesia) 30 ml DAILYPRN PRN PO CONSTIPATION 07/23/19 19:45 UNV Magnesium Hydroxide (Milk Of Magnesia) 30 ml DAILYPRN PRN PO CONSTIPATION 07/24/19 15:15 Multivitamins (Theragram-M) 1 tab DAILY PO 07/24/19 09:00 UNV Nicotine (Nicoderm Cq 21mg) 1 patch DAILY TD 07/24/19 09:00 07/27/19 08:10 Nicotine (Nicoderm Cq 21mg) 1 patch DAILY PRN TD Nicotine withdrawl 07/23/19 19:45 UNV Olanzapine (ZyPREXA) 5 mg Q4HP PO 07/23/19 19:45 UNV Quetiapine Fumarate (SEROquel) 50 mg QHS PRN PO SLEEP 07/26/19 17:30 07/26/19 22:33 Quetiapine Fumarate (SEROquel) 50 mg QHSP PRN PO INSOMNIA 07/24/19 20:45 07/25/19 11:11 DC 07/24/19 20:48 Thiamine HCl (Thiamine HCl) 100 mg BID PO 07/23/19 21:00 07/26/19 20:59 UNV Trazodone HCl (Desyrel) 50 mg QHSP PRN PO INSOMNIA 07/24/19 15:15 07/24/19 20:35 DC Trazodone HCl (Desyrel) 100 mg QHSP PRN PO INSOMNIA 07/23/19 19:45 UNV Allergies Coded Allergies: No Known Allergies (Verified Allergy, Unknown, 07/22/19) DOMINGO MULLIGAN MD Jul 27, 2019 11:38
[2019-07-28 06:18] VITALS: BP 114/57
[2019-07-28] MEDS: NICOTINE 21MG/24HR 1 EA TRANSDERMAL TD SCH (08:18)
[2019-07-28] MEDS: buPROPion **XL** TABLET 150MG (WELLBUTRIN XL) PO SCH (08:18)
--- NOTE | 2019-07-28 09:11 | MHIPNPDOC ---
[facility] Progress Note Progress Note DATE OF SERVICE: 07/28/19 HISTORY: . VITAL SIGNS: See below. NEW TEST RESULTS: . CURRENT MEDICATIONS: See below. MENTAL STATUS EXAMINATION: Patient is a -year old male, who is . Speech: Is . Language skills are . Thought processes including: . Thought content: . Abstract reasoning, and computation: . Description of associ ations: . Description of abnormal or psychotic thoughts: . Judgment: . Insight: [very limited, good, fair. poor]. Orientation: . Recent and remote memory: . Attention span and concentration: . Language: . Fund of knowledge: . Mood: . Affect: . DIAGNOSES: 1. . 2. . 3. . ASSESSMENT: MANAGEMENT PLAN: . TIME SPENT: minutes. Vital Signs Vital Signs Date Time Temp Pulse Resp B/P (MAP) Pulse Ox O2 Delivery O2 Flow Rate FiO2 07/28/19 06:18 98.8 64 16 114/57 (76) 97 Room Air Current Medications Current Medications Medications (Trade) Dose Ordered Sig/Joy Route PRN Reason Start Time Stop Time Status Last Admin Dose Admin Acetaminophen (Tylenol Tab) 650 mg Q6HP PRN PO HEADACHE or DISCOMFORT 07/24/19 15:15 07/27/19 09:39 Al Hydrox/Mg Hydrox/Simethicone (Mylanta) 30 ml Q4HP PRN PO HEARTBURN/INDIGESTION 07/23/19 19:45 UNV Al Hydrox/Mg Hydrox/Simethicone (Mylanta) 30 ml Q4HP PRN PO HEARTBURN/INDIGESTION 07/24/19 15:15 07/25/19 13:30 Bupropion HCl (Wellbutrin Xl) 150 mg DAILY PO 07/26/19 09:00 07/28/19 08:18 Folic Acid (Folic Acid) 1 mg DAILY PO 07/24/19 09:00 UNV Hydroxyzine HCl (Atarax) 50 mg QHSP PRN PO sleep 07/25/19 11:15 07/26/19 17:33 DC 07/25/19 20:33 Ibuprofen (Advil) 400 mg Q6HP PRN PO PAIN 07/23/19 19:45 UNV Lorazepam (Ativan) 2 mg ASDIRECTED PRN PO SEE PROTOCOL 07/23/19 19:45 UNV Magnesium Hydroxide (Milk Of Magnesia) 30 ml DAILYPRN PRN PO CONSTIPATION 07/23/19 19:45 UNV Magnesium Hydroxide (Milk Of Magnesia) 30 ml DAILYPRN PRN PO CONSTIPATION 07/24/19 15:15 Multivitamins (Theragram-M) 1 tab DAILY PO 07/24/19 09:00 UNV Nicotine (Nicoderm Cq 21mg) 1 patch DAILY TD 07/24/19 09:00 07/28/19 08:18 Nicotine (Nicoderm Cq 21mg) 1 patch DAILY PRN TD Nicotine withdrawl 07/23/19 19:45 UNV Olanzapine (ZyPREXA) 5 mg Q4HP PO 07/23/19 19:45 UNV Quetiapine Fumarate (SEROquel) 50 mg QHS PRN PO SLEEP 07/26/19 17:30 07/27/19 21:41 Quetiapine Fumarate (SEROquel) 50 mg QHSP PRN PO INSOMNIA 07/24/19 20:45 07/25/19 11:11 DC 07/24/19 20:48 Thiamine HCl (Thiamine HCl) 100 mg BID PO 07/23/19 21:00 07/26/19 20:59 UNV Trazodone HCl (Desyrel) 50 mg QHSP PRN PO INSOMNIA 07/24/19 15:15 07/24/19 20:35 DC Trazodone HCl (Desyrel) 100 mg QHSP PRN PO INSOMNIA 07/23/19 19:45 UNV Allergies Coded Allergies: No Known Allergies (Verified Allergy, Unknown, 07/22/19) DENIA HYLTON DO Jul 28, 2019 09:11
--- NOTE | 2019-07-28 09:58 | MHDSPDOC ---
[facility] Discharge Summary Discharge Summary DATE OF ADMISSION: Jul 24, 2019 at 15:12 DATE OF DISCHARGE: 07/29/19 Discharge Isaiah Kam MRN: N/A Date of : N/A Date of Service: 07/28/2019 Diagnoses Unspecified depressive disorder. MDD versus abscess versus adjustment. Alcohol use disorder, severe. Tobacco use disorder, mild. History of Present Illness The patient, a 20-year-old man who I had seen up on the medical floor after an overdose, is met with and follow upon the inpatient floor. He reports that he did have quite a bit of trouble with depression, loneliness and increasing depression symptoms such as fatigue and insomnia. 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 He reports that he has been trying to stop drinking, but finds it difficult in these moments of loneliness to refuse to drink. He reports that he is interested in treatment and staff had report since he has arrived, he is much more motivated to engage in proper treatment. Consultants Involved Hospitalist/PCP screening Treatment and Progress On The Unit The patient was admitted to the inpatient mental health unit and subsequently started on Wellbutrin with positive results. The patient was converted to voluntary shortly thereafter he had no suicide or homicidal ideation, no concerning behaviors and attended the treatment while made solid improvement and subsequently requested discharge on the following Sunday after making great progress. He was generally amenable and had a fairly good insight and requested treatment for his alcoholism. Discharge Assessment 23-year-old man with likely depression/alcohol problems of undetermined significance of either or presents after overdose was treated appropriately with the new antidepressant and given alcohol reduction treatment. He does well made solid improvements and requests discharge. The patient at the time of discharge did not meet criteria for involuntary admission/extension due to having a normal mental status exam, fair insight into the situation, They are engaged in the discharge process, as well as being friendly and amenable in behavioral control and havent been engaging in any observed concerning behavior or ideation recently. They decline voluntary extension/admission at this time and must be discharged in good rajeev, as Im unable to make a case for holding the patient against their will. They may have historical risk factors of admissions and other interactions with psychiatry however, those are not modifiable from a clinical perspective. The patient will need to be discharged in good rajeev. Mental Status Examination General: Well dressed with good hygiene Speech: Spontaneous and fluid Thought processes: Linear and logical MSK: Smooth and coordinated gait, no signs of tremors or involuntary orofacial movements Thought content: Future orientated Abstract reasoning, and computation: Intact Description of associations: Intact Description of abnormal or psychotic thoughts: Denies any suicidal or homicidal ideation. Denies any auditory or visual hallucinations. Does not appear to be responding to internal stimuli. Does not appear to be endorsing any bizarre or paranoid ideation. Judgment: fair Insight: fair Orientation: Alert and orientated 3 Cognition: Grossly normal Recent and remote memory: Intact Attention span and concentration: Intact Fund of knowledge: Adequate Mood: "okay" Affect: Euthymic with a full range Follow Up The social work team worked during the predischarge meeting in order to evaluate for further issues of lethality address them fully before discharge. They worked on safety planning with the patient's family members in order to ensure that the patient will have a safe and effective discharge. Time Spent The amount of time spent in the coordination of care for this patient was approximately 45 minutes. Sunday Vital Signs/I&Os Vital Signs Date Time Temp Pulse Resp B/P (MAP) Pulse Ox O2 Delivery O2 Flow Rate FiO2 07/28/19 06:18 98.8 64 16 114/57 (76) 97 Room Air Medications Scheduled Bupropion Hcl (Bupropion Xl) 150 Mg Tab.er.24h, 150 MG PO DAILY for mood for 7 Days, #7 Disulfiram (Disulfiram) 250 Mg Tablet, 1 TAB PO DAILY for alcohol for 30 Days, #30 Nicotine (Nicotine Patch) 21 Mg Patch.td24, 1 PATCH TD DAILY for tobacco for 30 Days, #30 Quetiapine Fumarate (Seroquel) 50 Mg Tablet, 50 MG PO QHS for sleep for 7 Days, #7 Allergies Coded Allergies: No Known Allergies (Verified Allergy, Unknown, 07/22/19) DENIA HYLTON DO Jul 28, 2019 09:58
[2019-07-28] MEDS ORDERED: DISU250T PO (10:22)
[2019-07-28] MEDS ORDERED: BUPR150T3 PO (10:22)
[2019-07-28] MEDS ORDERED: SERO50TA PO (10:22)
[2019-07-28] MEDS ORDERED: NICO21PAT TD (10:22)
== END 2019-07-28 13:20 | disposition home or self-care (01) | DRG 881 ==
LOC: M PSY 07-24 15:12
PROVIDERS: ADMIT Psychiatry & Neurology Addiction Medicine; ATTEND Psychiatry & Neurology Addiction Medicine
DX: F32.9 Major depressive disorder, single episode, unspecified (principal); F43.21 Adjustment disorder with depressed mood; F10.20 Alcohol dependence, uncomplicated; F17.200 Nicotine dependence, unspecified, uncomplicated; Z91.5 Personal history of self-harm; Z79.899 Other long term (current) drug therapy; R07.89 Other chest pain; Z63.5 Disruption of family by separation and divorce